=== PATIENT | female | born 1960 | race Caucasian/White ===

== ENCOUNTER 2016-03-01 15:35 | Emergency (ER) | payer OTHER ==
[~2016-03-01 15:35] MED LIST: ANTI2TAB PO; LISI-363 PO; VENTAER INH; ZOFR4TAB3 PO
[2016-03-01 15:41] VITALS: BP 176/97; PULSE 75; RESP 16; TEMP 98.1; O2SAT 98
[2016-03-01 15:59] LABS: BLOOD, URINE TRACE (NEG); GLUCOSE,URINE NEG (NEG); KETONE, URINE NEG (NEG); NITRITE,URINE NEG (NEG); PH, URINE 5.5 (5.0-8.5)
--- NOTE | 2016-03-01 16:01 | PD ---
HPI Chief Complaint: Flank/Kidney Pain Time Seen by Provider: 15:49 Travel History International Travel<30 days: No Contact w/Intl Traveler<30days: No Traveled to known affect area: No History of Present Illness HPI So 55-year-old woman who presents to the emergency department complaining of mid to low back pain starting week or so ago, both her rib cage, little bit worse on the right than the left, progressing to lower abdominal and suprapubic pain today, with dysuria and urinary burning today. States it now feels like she has a urinary tract infection but she's never really had the back pain with it before. No change in her bowel movements. Only abdominal surgical histories a hysterectomy. No abnormal vaginal bleeding. She otherwise has been feeling generally well and healthy. No other complaints. History Past Medical History Narrative Medical History of hypertension Menopausal: Yes Social History Alcohol Use: No Tobacco Use: No Allergies-Medications (Allergen,Severity, Reaction): Coded Allergies: Codeine (Verified Adverse Reaction, Intermediate, Hives, 03/01/16) Uncoded Allergies: STEROIDS (Allergy, Unknown, 07/29/14) Reported Meds & Prescriptions Reported Meds & Active Scripts Active No Active Prescriptions or Reported Medications Review of Systems Except as stated in HPI: all other systems reviewed are Neg Physical Exam Narrative GENERAL: Well-appearing 55-year-old woman, no acute distress. SKIN: Warm and dry. NECK: Trachea midline. No JVD. CARDIOVASCULAR: Regular rate and rhythm. No murmur appreciated. RESPIRATORY: No accessory muscle use. Clear to auscultation. Breath sounds equal bilaterally. GASTROINTESTINAL: Abdomen soft, mild suprapubic tenderness. No CVA tenderness percussion. MUSCULOSKELETAL: No obvious deformities. No clubbing. No cyanosis. No edema. NEUROLOGICAL: Awake and alert. No obvious cranial nerve deficits. Motor grossly within normal limits. Normal speech. Data Data Last Documented VS Vital Signs Date Time Temp Pulse Resp B/P Pulse Ox O2 Delivery O2 Flow Rate FiO2 03/01/16 15:41 98.1 75 16 176/97 98 Orders Urinalysis - C+S If Indicated (03/01/16 15:51) Complete Blood Count With Diff (03/01/16 16:07) Comprehensive Metabolic Panel (03/01/16 16:07) Ct Abd/Pel W/O Iv Contrast (03/01/16 ) Iv Access Insert/Monitor (03/01/16 16:07) Ketorolac Inj (Toradol Inj) (03/01/16 16:45) Urine Culture (03/01/16 17:06) Labs Laboratory Tests Test 03/01/16 03/01/16 15:50 16:15 Urine Collection Type CLEAN CATCH Urine Color YELLOW Urine Turbidity CLEAR Urine pH 5.[address] [place] 1.027 Urine Protein NEG mg/dL Urine Glucose (UA) NEG mg/dL Urine Ketones NEG mg/dL Urine Occult Blood TRACE Urine Nitrite NEG Urine Bilirubin NEG Urine Leukocyte Esterase NEG Urine RBC 4-9 /hpf Urine WBC 0-2 /hpf Urine Squamous Epithelial 6-8 /hpf Cells Urine Calcium Oxalate Crystals MOD /hpf Urine Bacteria RARE /hpf Microscopic Urinalysis Comment CULT NOT INDICATED Urine Collection Time 15:50 White Blood Count 7.4 TH/MM3 Red Blood Count 5.01 MIL/MM3 Hemoglobin 14.8 GM/DL Hematocrit 42.7 % Mean Corpuscular Volume 85.2 FL Mean Corpuscular Hemoglobin 29.5 PG Mean Corpuscular Hemoglobin 34.6 % Concent Red Cell Distribution Width 12.0 % Platelet Count 223 TH/MM3 Mean Platelet Volume 8.2 FL Neutrophils (%) (Auto) 48.5 % Lymphocytes (%) (Auto) 41.3 % Monocytes (%) (Auto) 8.5 % Eosinophils (%) (Auto) 1.1 % Basophils (%) (Auto) 0.6 % Neutrophils # (Auto) 3.6 TH/MM3 Lymphocytes # (Auto) 3.1 TH/MM3 Monocytes # (Auto) 0.6 TH/MM3 Eosinophils # (Auto) 0.1 TH/MM3 Basophils # (Auto) 0.0 TH/MM3 CBC Comment DIFF FINAL Differential Comment Sodium Level 146 MEQ/L Potassium Level 3.5 MEQ/L Chloride Level 109 MEQ/L Carbon Dioxide Level 26.4 MEQ/L Anion Gap 11 MEQ/L Blood Urea Nitrogen 13 MG/DL Creatinine 0.91 MG/DL Estimat Glomerular Filtration 64 ML/MIN Rate Random Glucose 101 MG/DL Calcium Level 9.2 MG/DL Total Bilirubin 0.2 MG/DL Aspartate Amino Transf 10 U/L (AST/SGOT) Alanine Aminotransferase 37 U/L (ALT/SGPT) Alkaline Phosphatase 71 U/L Total Protein 7.0 GM/DL Albumin 3.8 GM/DL [facility] Medical Decision Making Medical Screen Exam Complete: Yes Emergency Medical Condition: Yes Interpretation(s) LABS: CBC is unremarkable. CMP is unremarkable. UA was some hematuria. CT abdomen and pelvis: Faint stone in the right renal pelvis, mild hepatomegaly. 18 mm low density in the right over the liver, indeterminate. Uncomplicated colonic diverticulosis. Differential Diagnosis UTI, renal lithiasis, diverticulitis, appendicitis, AAA, other Narrative Course Medical decision making INITIAL: Is a 55-year-old woman who presents to the emergency department with back pain progressive suprapubic pain with dysuria suggestive of urinary tract infection. Renal stone with hematuria could have some more faxed with dysuria. No other tenderness to support appendicitis or diverticulitis. No evidence for AAA. We'll check urine, strongly suggestive of UTI, we'll treat, otherwise reassess. FINAL: Patient microscopic hematuria, flank and lower abdominal pain and dysuria. No significant pyuria. CT scan shows a tiny renal calculus in the renal pelvis. Unclear if this is the cause of her symptoms. Urine was sent for culture. We'll treat empirically for UTI. She also has an indeterminate liver hypodensity that we'll do seem to be followed. Diagnosis Primary Impression: Flank pain Additional Impression: Hematuria Patient Instructions: General Instructions Additional Instructions: Take [id number] medications as needed for pain. Take Macrobid as prescribed. Follow-up with your primary doctor in the next 2-3 weeks. Return to the emergency department for any new or worsening symptoms. Med/Other Pt SpecificInfo: Prescription(s) given Scripts Nitrofurantoin Monohydrate Macrocrystals (Macrobid)100 Mg Tyr196 Mg PO BID 5 Days Prov:Brian Berkowitz MD 03/01/16 Disposition: 01 DISCHARGE HOME Condition: Stable Brian Berkowitz MD Mar 01, 2016 16:01
[2016-03-01 16:04] LABS: METHOD OF COLLECTION CLEAN CATCH; URINE COLOR YELLOW (YELLW/STRAW); WBC, URINE 0-2 /hpf (0-5)
[2016-03-01 16:05] LABS: BACTERIA, URINE RARE /hpf; CALCIUM OXALATE CRYSTALS,URINE MOD /hpf; COMMENT (UR) CULT NOT INDICATED; CULTURE IF INDICATED CULT NOT INDICATED
[2016-03-01 16:32] LABS: AUTOMATED NEUTROPHIL # 3.6 TH/MM3 (1.8-7.7); BASOPHIL % 0.6 % (0.0-2.0); EOSINOPHIL # 0.1 TH/MM3 (0-0.4); EOSINOPHIL % 1.1 % (0.0-4.0); HEMATOCRIT 42.7 % (35.0-46.0); HEMO FLAGS DIFF FINAL; LYMPH % 41.3 % (9.0-44.0); LYMPHOCYTE # 3.1 TH/MM3 (1.0-4.8); MEAN CELL VOLUME 85.2 FL (80.0-100.0); MEAN CORPUSCULAR HEMOGLOBIN 29.5 PG (27.0-34.0); MEAN CORPUSCULAR HGB CONC 34.6 % (32.0-36.0); MONO % 8.5 % (0.0-8.0); NEUT % 48.5 % (16.0-70.0); PLATELET COUNT 223 TH/MM3 (150-450); RED BLOOD COUNT 5.01 MIL/MM3 (4.00-5.30); WHITE BLOOD COUNT 7.4 TH/MM3 (4.0-11.0)
[2016-03-01 16:39] LABS: CHLORIDE 109 MEQ/L (98-107); POTASSIUM 3.5 MEQ/L (3.5-5.1); SODIUM (NA) 146 MEQ/L (136-145)
[2016-03-01 16:43] LABS: ANION GAP 11 MEQ/L (5-15); BICARBONATE 26.4 MEQ/L (21.0-32.0); BLOOD UREA NITROGEN 13 MG/DL (7-18)
[2016-03-01] MEDS ORDERED: KETOROLAC TROMETHAMINE 30 MG/ML (IVP) VIAL IV PUSH ONE (16:45)
[2016-03-01 16:46] LABS: ALT (GPT) 37 U/L (10-53); AST (GOT) 10 U/L (15-37); GLOMERULAR FILTRATION RATE 64 ML/MIN (>89)
[2016-03-01 16:47] LABS: TOTAL BILIRUBIN ADULT 0.2 MG/DL (0.2-1.0)
[2016-03-01 16:49] LABS: ALKALINE PHOSPHATASE 71 U/L (45-117)
--- NOTE | 2016-03-01 17:13 | RADHPO ---
EXAM DATE/TIME: 03/01/2016 16:30 [facility] COMPARISON: No previous studies available for comparison. INDICATIONS : Bilateral lower back pain. Microhematuria. ORAL CONTRAST: No oral contrast ingested. RADIATION DOSE: 22.93 CTDIvol (mGy) MEDICAL HISTORY : None SURGICAL HISTORY : Hysterectomy. Right lumpectomy. ENCOUNTER: Initial ACUITY: 1 week PAIN SCALE: 8/10 LOCATION: Bilateral lower back. TECHNIQUE: Volumetric scanning of the abdomen and pelvis was performed. Using automated exposure control and ad justment of the mA and/or kV according to patient size, radiation dose was kept as low as reasonably achievable to obtain optimal diagnostic quality images. FINDINGS: LOWER LUNGS: The visualized lower lungs are clear. LIVER: Mild hepatomegaly is noted. There is an 18 mm low density lesion within the right lobe of the liver w hich is indeterminate on this unenhanced exam. There is no dilation of the biliary tree. No calcifie d gallstones. SPLEEN: Normal size without lesion. PANCREAS: Within normal limits. KIDNEYS: Normal in size and shape. There is a tiny 3 mm faintly calcified nonobstructing midpole right renal calculus. There is no mass or hydronephrosis. ADRENAL GLANDS: Within normal limits. VASCULAR: There is no aortic aneurysm. BOWEL/MESENTERY: Uncomplicated colonic diverticulosis is noted. No acute diverticulitis is noted. ABDOMINAL WALL: Within normal limits. RETROPERITONEUM: There is no lymphadenopathy. BLADDER: No wall thickening or mass. REPRODUCTIVE: Within normal limits. INGUINAL: There is no lymphadenopathy or hernia. MUSCULOSKELETAL: Within normal limits for patient age. CONCLUSION: 1. Tiny 3 mm faintly calcified nonobstructing midpole right renal calculus. 2. Mild hepatomegaly. 3. 18 mm low density lesion within the right lobe of the liver which is indeterminate. 4. Uncomplicated colonic diverticulosis. Andrea Jimenez MD on March 01, 2016 at 17:07 Board Certified Radiologist. This report was verified electronically.
[2016-03-01] MEDS ORDERED: MACR100C2 PO (17:19)
[2016-03-01 17:20] VITALS: BP 187/94; PULSE 58; RESP 18; O2SAT 98
[2016-03-01] MEDS ORDERED: BACT800T5 PO (17:25)
== END 2016-03-01 17:32 | disposition home or self-care (01) ==
LOC: PHED 15:35
DX: R10.30 Lower abdominal pain, unspecified (principal); R31.9 Hematuria, unspecified; I10 Essential (primary) hypertension
CPT/HCPCS: 74176; 80053; 81001; 85025; 87086; 96374; 99284; J1885